=== PATIENT | female | born 1985 | race Caucasian/White ===

== ENCOUNTER 2019-03-21 02:30 | Emergency (ER) | payer OTHER ==
[~2019-03-21] VITALS: Ht 167.6 cm; Wt 56.7 kg
[2019-03-21 02:30] VITALS: BP 122/84
--- NOTE | 2019-03-21 02:30 | NUR ---
PT AMBULATED IN CUSTODY TO BED #9, [facility] AT BEDSIDE
--- NOTE | 2019-03-21 02:30 | NUR ---
PT CAME INTO ER IN CUSTODY WITH C/O PREBOOK, ETOH. PT IS NONCOMPLIANT WITH [facility]. PT IS HAS BEEN COMPATIVE WITH [facility] AND REFUSES TO GIVE INFORMATION/MEDICAL HX. PT STATES SHE HAS ANXIETY AND DEPRESSION AND TAKES MEDICATION BUT DOES NOT KNOW THE NAMES OR DOSE. PT IS A/OX4. PT DENIES PAIN 0/10 AT THIS TIME. ERMD MADE AWARE OF STATUS, SAFTEY MEASURES IN PLACE.
[2019-03-21 03:03] VITALS: BP 122/84
--- NOTE | 2019-03-21 03:03 | NUR ---
Patient discharged with v/s stable. Written and verbal after care instructions given and explained. Patient verbalized understanding.PT AMBULATED WITH Police with in custody. All questions addressed prior to discharge. Advised to follow up with PMD.
== END 2019-03-21 03:03 ==
LOC: MED 02:30
DX: F10.10 Alcohol abuse, uncomplicated (principal); R03.0 Elevated blood-pressure reading, without diagnosis of hypertension; Z02.89 Encounter for other administrative examinations
CPT/HCPCS: 99283